=== PATIENT | male | born 1995 | race Hispanic/Latino ===

== ENCOUNTER 2018-12-05 01:11 | Emergency (ER) | payer OTHER ==
[~2018-12-05] VITALS: Ht 188 cm; Wt 86.4 kg
[2018-12-05] MEDS ORDERED: ACETAMINOPHEN 500 MG TAB PO ONE (02:00)
[2018-12-05] MEDS ORDERED: ONDANSETRON 4 MG ORAL DISINTEGRATING TAB (Q0162 PER 1MG) As Ordered ONE (02:09)
[2018-12-05] MEDS ORDERED: ONDANSETRON 4 MG ORAL DISINTEGRATING TAB (Q0162 PER 1MG) PO ONE (02:15)
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
[2018-12-05 02:53] VITALS: BP 138/72
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
== END 2018-12-05 02:54 | disposition home or self-care (01) ==
LOC: M ED 01:11
DX: S00.83XA Contusion of other part of head, initial encounter (principal); Y04.8XXA Assault by other bodily force, initial encounter; Y92.89 Other specified places as the place of occurrence of the external cause
CPT/HCPCS: 70450; 70486; 72125; 99283; Q0162

== ENCOUNTER → 2020-11-03 | Outpatient (REF) | payer OTHER ==
[2020-11-03 09:27] LABS: SEMEN APPEARANCE OPAQUE (OPAQUE); SEMEN VISCOSITY LIQUID (LIQUID); SEMEN VOLUME 1.2 ml (2.0-5.0); SEMEN pH 8.5 (7.0-8.0); SPERM CONCENTRATION 113.1 M/ml (>=15.0); WBC CONCENTRATION <=1 M/ml (<=1 M/ml)
== END ==
LOC: M LAB REF 09:20
PROVIDERS: ATTEND Obstetrics & Gynecology
DX: Z00.00 Encounter for general adult medical examination without abnormal findings (principal)

== ENCOUNTER 2021-05-14 20:43 | Emergency (ER) | payer OTHER ==
[~2021-05-14] VITALS: Ht 188 cm; Wt 97.7 kg
[2021-05-14 20:44] VITALS: BP 136/65
== END 2021-05-14 21:39 | disposition left against medical advice (07) ==
LOC: M ED 20:43
DX: Z53.21 Procedure and treatment not carried out due to patient leaving prior to being seen by health care provider (principal)

== ENCOUNTER 2022-02-12 05:09 | Emergency (ER) | payer OTHER ==
[~2022-02-12] VITALS: Ht 188 cm; Wt 102.3 kg
[2022-02-12 06:03] LABS: BASO % 0.3 % (0.0-1.0); EOS # 0.1 10^3/uL (0.0-0.5); EOS % 1.6 % (0.0-3.0); HEMATOCRIT 45.5 % (42.0-52.0); HEMOGLOBIN 15.1 g/dl (13.5-17.5); LYMPH # 3.5 10^3/uL (1.5-5.0); LYMPH % 47.1 % (24.0-44.0); MEAN CORPUSCULAR HEMOGLOBIN 28.2 pg (27.0-33.0); MEAN CORPUSCULAR HGB CONC 33.2 g/dl (32.0-36.5); MONO # 0.4 10^3/uL (0.0-0.8); MONO % 5.7 % (2.0-8.0); NEUTROPHILS # 3.4 10^3/uL (1.5-8.5); PLATELET COUNT, AUTOMATED 230 10^3/uL (150-450); RED BLOOD COUNT 5.35 10^6/uL (4.30-6.10); WHITE BLOOD COUNT 7.5 10^3/uL (4.0-10.0)
[2022-02-12 06:48] LABS: BLOOD UREA NITROGEN 19 MG/DL (9-23); CALCIUM LEVEL 9.2 MG/DL (8.5-10.1); CARBON DIOXIDE LEVEL 27 MMOL/L (20-31); CHLORIDE LEVEL 104 MMOL/L (98-107); CK-MB VALUE MASS < 1.0 NG/ML (<3.6); CPK CREATINE PHOSPHOKINASE 122 U/L (46-171); GLOMERULAR FILTRATION RATE > 60.0 (>60); GLUCOSE, FASTING 103 MG/DL (60-100); MB/CK RELATIVE INDEX 0.81 (< OR =4); POTASSIUM SERUM 4.2 MMOL/L (3.5-5.1); SODIUM LEVEL 139 MMOL/L (136-145)
[2022-02-12] MEDS ORDERED: HOLTER MONITOR XX (07:51)
[2022-02-12 08:04] VITALS: BP 135/68
== END 2022-02-12 08:06 | disposition home or self-care (01) ==
LOC: M ED 05:09
DX: R00.2 Palpitations (principal); I49.1 Atrial premature depolarization; F10.10 Alcohol abuse, uncomplicated; Z87.891 Personal history of nicotine dependence

== ENCOUNTER → 2022-02-12 | Outpatient (CLI) | payer OTHER ==
[~2022-02-12] MED LIST: HOLTER MONITOR XX
== END ==
LOC: M EKG 08:24
PROVIDERS: ATTEND Emergency Medicine
DX: R00.2 Palpitations (principal)

== ENCOUNTER 2022-07-29 15:35 | Emergency (ER) | payer OTHER ==
[~2022-07-29] VITALS: Ht 188 cm; Wt 105.0 kg
[2022-07-29 15:39] VITALS: BP 142/74
[2022-07-29] MEDS ORDERED: COLC0.6T47 (15:51)
[2022-07-29] MEDS ORDERED: IBUP200T46 PO (15:51)
[2022-07-29 17:58] LABS: BASO % 0.3 % (0.0-1.0); EOS # 0.2 10^3/uL (0.0-0.5); EOS % 2.1 % (0.0-3.0); LYMPH # 2.6 10^3/uL (1.5-5.0); LYMPH % 32.2 % (24.0-44.0); MEAN CORPUSCULAR HEMOGLOBIN 28.1 pg (27.0-33.0); MEAN CORPUSCULAR HGB CONC 33.3 g/dl (32.0-36.5); MEAN CORPUSCULAR VOLUME 84.4 fl (80.0-96.0); MONO # 0.5 10^3/uL (0.0-0.8); MONO % 5.8 % (2.0-8.0); NEUTROPHILS # 4.7 10^3/uL (1.5-8.5); NEUTROPHILS % 59.5 % (36.0-66.0); PLATELET COUNT, AUTOMATED 224 10^3/uL (150-450); RED BLOOD COUNT 5.33 10^6/uL (4.30-6.10); WHITE BLOOD COUNT 7.9 10^3/uL (4.0-10.0)
[2022-07-29 18:23] LABS: C REACTIVE PROTEIN QUANTITATIV < 0.40 MG/DL (<1.0); CK-MB VALUE MASS < 1.0 NG/ML (<3.6)
[2022-07-29 18:36] LABS: CPK CREATINE PHOSPHOKINASE 201 U/L (46-171); MB/CK RELATIVE INDEX 0.49 (< OR =4)
[2022-07-29 18:38] LABS: ERYTHROCYTE SEDIMENTATION RATE 15 mm/hr (0-15)
[2022-07-29] MEDS ORDERED: methylPREDNISolone 125MG 2ML VIAL IM ONE (19:35)
[2022-07-29] MEDS ORDERED: OMEPRAZOLE 20MG CAP PO ONE (19:35)
[2022-07-29] MEDS ORDERED: OMEP40CA5 PO (19:46)
[2022-07-29] MEDS ORDERED: PRED5TA PO (19:46)
== END 2022-07-29 20:27 | disposition home or self-care (01) ==
LOC: M ED 15:35
DX: I30.9 Acute pericarditis, unspecified (principal); R07.9 Chest pain, unspecified; J45.909 Unspecified asthma, uncomplicated; Z79.899 Other long term (current) drug therapy
CPT/HCPCS: 71046; 80047; 82550; 82553; 84484; 85025; 85652; 86140; 93005; 96372; 99284; J2930

== ENCOUNTER → 2023-06-21 | Outpatient (CLI) | payer OTHER ==
[~2023-06-21] MED LIST changes: +COLC0.6T47; +IBUP200T46 PO; +OMEP40CA5 PO; +PRED5TA PO
[2023-06-21 10:49] LABS: BASO % 0.5 % (0.0-1.0); EOS # 0.2 10^3/uL (0.0-0.5); EOS % 2.8 % (0.0-3.0); HEMATOCRIT 42.8 % (42.0-52.0); HEMOGLOBIN 13.9 g/dl (13.5-17.5); LYMPH # 2.4 10^3/uL (1.5-5.0); LYMPH % 38.5 % (24.0-44.0); MEAN CORPUSCULAR HEMOGLOBIN 28.3 pg (27.0-33.0); MEAN CORPUSCULAR HGB CONC 32.5 g/dl (32.0-36.5); MEAN CORPUSCULAR VOLUME 87.2 fl (80.0-96.0); MONO # 0.3 10^3/uL (0.0-0.8); MONO % 4.6 % (2.0-8.0); NEUTROPHILS # 3.3 10^3/uL (1.5-8.5); NEUTROPHILS % 53.3 % (36.0-66.0); PLATELET COUNT, AUTOMATED 250 10^3/uL (150-450); RED BLOOD COUNT 4.91 10^6/uL (4.30-6.10); WHITE BLOOD COUNT 6.1 10^3/uL (4.0-10.0)
[2023-06-21 11:27] LABS: BLOOD UREA NITROGEN 17 MG/DL (9-23); CALCIUM LEVEL 9.5 MG/DL (8.5-10.1); CARBON DIOXIDE LEVEL 30 MMOL/L (20-31); CHLORIDE LEVEL 108 MMOL/L (98-107); GLOMERULAR FILTRATION RATE > 60.0 (>60); GLUCOSE, FASTING 84 MG/DL (60-100); POTASSIUM SERUM 4.3 MMOL/L (3.5-5.1); SODIUM LEVEL 137 MMOL/L (136-145)
== END ==
LOC: M LAB 09:39
PROVIDERS: ATTEND Internal Medicine Cardiovascular Disease
DX: R07.9 Chest pain, unspecified (principal); R00.2 Palpitations; R03.0 Elevated blood-pressure reading, without diagnosis of hypertension

== ENCOUNTER 2023-07-08 15:26 | Emergency (ER) | payer OTHER ==
[~2023-07-08] VITALS: Ht 188 cm; Wt 98.5 kg
[2023-07-08] MEDS ORDERED: OMEP1CAP71 (15:38)
[2023-07-08] MEDS ORDERED: CELE0.09 (15:38)
[2023-07-08] MEDS ORDERED: ACET-683 PO (15:38)
[2023-07-08] MEDS: diphenhydrAMINE 50MG/ML VIAL IV ONE (19:27)
[2023-07-08] MEDS: NS 1,000 ML IV ONE (19:27)
[2023-07-08] MEDS: METOCLOPRAMIDE INJ 10MG/2ML VIAL IV ONE (19:27)
[2023-07-08] MEDS: PROPARACAINE 0.5% OPHTH SOL 15ML OU ONE (19:27)
[2023-07-08] MEDS: KETOROLAC 30 MG/ML 1ML VIAL IV ONE (19:28)
[2023-07-08] MEDS ORDERED: AMIT10TA7 PO (20:50)
[2023-07-08] MEDS ORDERED: RIZA10TA58 PO (20:50)
[2023-07-08 20:55] VITALS: BP 137/65; TEMP 97.4; O2SAT 100
== END 2023-07-08 21:01 | disposition home or self-care (01) ==
LOC: M ED 15:26
DX: G43.909 Migraine, unspecified, not intractable, without status migrainosus (principal); Z98.61 Coronary angioplasty status
CPT/HCPCS: 70450; 96361; 96374; 96375; 99283; J1100; J1200; J1885; J2765

== ENCOUNTER → 2023-08-19 | Outpatient (CLI) | payer OTHER ==
[~2023-08-19] MED LIST changes: +ACET-683 PO; +AMIT10TA7 PO; +CELE0.09; +OMEP1CAP71; +RIZA10TA58 PO
== END ==
LOC: M CARPUL 08:25
DX: R07.9 Chest pain, unspecified (principal)